=== PATIENT | male | born 1930 | race Caucasian/White ===

== ENCOUNTER 2017-03-20 18:08 | Emergency (ER) | payer MEDICARE, BC ==
[2017-03-20] MEDS ORDERED: ONDANSETRON HCL/PF 2 MG/ML VIAL IV ONE ×2 (18:34→19:45)
[2017-03-20 18:42] LABS: Hemoglobin 14.7 gm/dL (13.5-18.0); Mean Cell Volume 86.3 fl (78-100); Mean Corpuscular Hemoglobin 28.8 pg (27-31); Mean Corpuscular Hgb Conc 33.4 g/dl (32-36); Mean Platelet Volume 10.7 fl (6.0-9.5); Neutrophil # 10.4 K/mm3 (1.3-6.0); Platelet Count 210 K/mm3 (150-450); Red Cell Distribution Width 13.5 % (11.5-14.0); White Blood Count 11.4 K/mm3 (4.0-10.5)
--- NOTE | 2017-03-20 18:46 | ERNOTE ---
Abdominal HPI - Narrative Date of Service: 03/20/17 - General Chief Complaint: Abdominal Pain Time Seen by Provider: 03/20/17 18:30 Source: patient, family Exam Limitations: no limitations - Immun/Allergies/Home Medications Immunizatons: IMMUNIZATION HX Immunizations Up to Date Yes History of Influenza Vaccine Yes Hx Pneumococcal Vaccination Yes Allergies/Adverse Reactions: Allergies hydroxychloroquine [From Plaquenil] Allergy (Intermediate, Verified 03/20/17 18: 21) Hives Home Medications: HOME MEDICATIONS Finasteride [Proscar] 5 mg PO HS 06/29/15 [Last Taken Unknown] Omeprazole [Prilosec] 40 mg PO DAILY 06/29/15 [Last Taken Unknown] Simvastatin [Zocor] 40 mg PO HS 06/29/15 [Last Taken Unknown] Tamsulosin HCl [Flomax] 0.8 mg PO HS 06/29/15 [Last Taken Unknown] Acetaminophen with Codeine [Tylenol-Codeine 300 MG/30 MG] 1 - 2 tab PO Q6H PRN 03/20/17 [Last Taken Unknown] Naproxen 500 mg PO BID PRN #20 tablet. 03/20/17 [Last Taken Unknown] Nortriptyline HCl 20 mg PO HS 03/20/17 [Last Taken Unknown] Ropinirole HCl 5 mg PO HS 03/20/17 [Last Taken Unknown] Testosterone [Androgel] 1.62 gm TD PRN PRN 03/20/17 [Last Taken Unknown] - History of Present Illness Narrative: Pt is an 86 year old male who presents for nausea and abdominal pain that began today around 1:30pm. He denies diarrhea, fevers/chill, recent travel or sick contacts. He has not had any episodes of emesis, however has been nauseated all day. His last BM was today which was normal for him, no notion of blood. He also endorses lower abdominal cramping. No urinary symptoms present. Nothing makes his symptoms better or worse and he did not take anything for it prior to arrival. He has been diagnosed with diverticulosis previously, however never had any episodes of diverticulitis or similar symptoms. Date (Duration): 03/20/17 Time (Timing): 13:30 Timing: constant Quality: moderate, cramping Activities at Onset: none Modifying Factors - (Improves): Absent: defecating, eating, rest, lying down, vomiting Associated Symptoms: Present: nausea, loss of appetite. Absent: headache, back pain, chest pain, neck pain, diaphoresis, diarrhea-gross blood, diarrhea-mucous , fever/chills, heartburn, vomiting, shortness of breath, swelling/mass in abdomen Prior Abdominal Problems: Present: none Review of Systems - Review of Systems Constitutional: Present: no symptoms reported EYE: Present: no symptoms reported ENT: Present: no symptoms reported Respiratory: Present: no symptoms reported Cardiology: Present: no symptoms reported Gastrointestinal/Abdominal: Present: nausea, abdominal pain. Absent: vomiting, diarrhea Genitourinary: Present: no symptoms reported. Absent: frequency, pain, dysuria Musculoskeletal: Present: no symptoms reported Neurological: Present: no symptoms reported Endocrine: Present: no symptoms reported Hematologic/Lymphatic: Present: no symptoms reported - Patient's Past Medical History Patient History - Medical: Rheumatoid Arthritis, Other Patient History - Cardiac/Respiratory: Hyperlipidemia Patient History - Cancer: No Hx of Cancer Patient History - Surgical Procedures: Appendectomy, Total Knee Replacement Patient History - Other: None - Social History Living Situations: home Abuse History: No History of abuse Psych History: No pertinent hx Smoking Status: Never smoker Alcohol Use: none Drug Use: none - Immunizations Immunizations Up to Date: Yes Hx Pneumococcal Vaccination: Yes History of Influenza Vaccine: Yes Physical Exam - Physical Exam General Appearance: Present: wd/wn, alert, no apparent distress Head Exam: Present: normal inspection Neck: Present: normal inspection Respiratory: Present: no respiratory distress, normal breath sounds, no accessory muscle use, chest nontender, lungs clear Cardiovascular/Chest: Present: regular rate, rhythm, no murmur, normal peripheral pulses Peripheral Pulses: N=norm/S=strong/W=weak/B=bound/A=absent: Dorsalis-pedis (R): Normal, Dorsalis-pedis (L): Normal Gastrointestinal/Abdominal: Present: normal bowel sounds, nondistended, soft, no organomegaly, tenderness - LLQ Back Exam: Present: no CVA tenderness Extremity Exam: Present: normal inspection, non-tender, normal range of motion, no edema Neurological Exam: Present: alert, oriented, normal mood/affect, no motor/ sensory deficits Skin Exam: Present: normal color, warm/dry ED Progress - Results and Orders Patient's Lab Results:: I have reviewed the patient's lab results. - Vital Signs Patient's Vital Signs:: I have reviewed the patient's vital signs. Vital Signs: Vital Signs 03/20/17 18:17 Temperature 36.4 C L Pulse Rate 99 Respiratory 19 Rate Blood Pressure 142/114 O2 Sat by Pulse 100 Oximetry - X-Ray X-Ray #1 X-Ray: abdomen Interpretation: Discd w/ radiologist X-ray Comments: evidence of potential pneumatosis intestinalis as discussed with radiologist. CT abdomen ordered for follow up. - CT/Ultrasound CT/Ultrasound Narrative: Several hepatic cyst multiple bilateral parapelvic cyst, larger on the left no hydronephrosis small bilateral fat containing inguinal hernias sveral small bladder diverticula suggestive of bladder outlet obstruction scattered colonic diverticula no pericecal inflammation degenerative changes seen within the hips and lumbar spine. - Progress/Reassessment Chief Complaint: Abdominal Pain Progress:: Improved Progress Note-Subjective: 03/20/17 21:00 Pt reports much improved pain control following Toradol injection. BP is also down. Awaiting abdominal CT at 21:30 Plan - Plan Plan: PT CT scan without evidence of hydronephrosis or renal calculi. No evidence of diverticulitis. There are several small bladder diverticula suggestive of bladder outlet obstruction. I suspect this is the reason for the presence of blood in his urine verses renal calculi like I previous suspected. His lactic was elevated at 2.9, although he does not have any other evidence of infection or sepsis present. No leukocytosis, shift or presence of bands, fevers, CRP is not elevated. I attribute this more to dehydration, he was prehydrated with a liter of fluid. I did cover him with a gram of Rochepin. He will need to follow up with urology for further evaluation of these findings. He is stable upon reexamination with improvement of pain. Departure Clinical Impression: Bladder outlet obstruction, Nausea - Departure Disposition: Home Follow Up Needed Condition: Good Additional Instructions: You need to follow up with urology for your abdominal CT findings which was suggestive of a bladder outlet obstruction. CT scan did not reveal any evidence of stone or diverticulitis. There is no evidence of infection. Please return of worsening of symptoms. Referrals: Kwame Boone MD [Associate] - Prescriptions: Naproxen 500 mg PO BID PRN #20 tablet.dr LAU Reason: Pain
[2017-03-20] MEDS ORDERED: ONDANSETRON HCL/PF 2 MG/ML VIAL ONE ×2 (18:49→19:45)
[2017-03-20 18:54] LABS: Albumin * 3.7 gm/dl (3.4-5.0); Anion Gap 16.6 mmol/L (6.8-13.8); BUN/Creatinine Ratio 11.2 (9.0-21.6); Bilirubin, Total 0.5 mg/dL (0.0-1.1); Ca. Corrected For Albumin 9.3 mg/dL (8.4-10.2); Calcium * 9.4 mg/dL (7.9-10.9); Carbon Dioxide 23.3 mmol/L (24-32.6); Potassium 3.9 mmol/L (3.4-4.6); Total Protein 7.2 gm/dL (6.2-8.2)
[2017-03-20] MEDS ORDERED: NORMAL SALINE 1,000 ML IV ONE (19:20)
[2017-03-20] MEDS ORDERED: DIATRIZOATE MEGLUMINE, SODIUM 30 ML BTL ONE (19:26)
[2017-03-20] MEDS ORDERED: DIATRIZOATE MEGLUMINE, SODIUM 30 ML BTL PO ONE (19:43)
[2017-03-20 19:46] LABS: Urine Appearance Clear; Urine Bilirubin Negative (NEGATIVE); Urine Color Yellow
[2017-03-20 19:47] LABS: Urine Bacteria None Seen; Urine Blood 250 /ul (NEGATIVE); Urine Ketone Negative (NEGATIVE); Urine Nitrite Negative (NEGATIVE); Urine Protein Negative (NEGATIVE); Urine Urobilinogen Normal (NORMAL); Urine WBC 0-5 /hpf (0-5)
[2017-03-20] MEDS ORDERED: KETOROLAC TROMETHAMINE 30 MG/ML VIAL IV ONE (20:26)
[2017-03-20] MEDS ORDERED: KETOROLAC TROMETHAMINE 30 MG/ML VIAL ONE (20:27)
[2017-03-20 21:28] VITALS: BP 133/81
== END 2017-03-20 22:50 | disposition home or self-care (01) ==
LOC: ER 18:08
DX: R11.0 Nausea; M06.9 Rheumatoid arthritis, unspecified; N32.0 Bladder-neck obstruction; E78.5 Hyperlipidemia, unspecified
CPT/HCPCS: 36415; 74019; 74177; 80053; 81001; 83605; 85025; 85652; 86140; 87040; 96365; 96375; 99284; J2405